=== PATIENT | male | born 1950 | race Caucasian/White ===

== ENCOUNTER → 2023-09-06 08:11 | Outpatient (CLI) | payer OTHER, SELFPAY ==
--- NOTE | 2023-09-06 08:33 | DI.RAD.S_ITS ---
PROCEDURE: XR LUMBAR SPINE 2-3V INDICATIONS: DEGENERATIVE ARTHRITIS TECHNIQUE: 3 views of the lumbar spine were acquired. COMPARISON: None. FINDINGS: Bones: 5 [id number] vertebrae are present. There is 5 mm retrolisthesis of L1 on L2, 4 mm retrolisthesis of L2 on L3, 6 mm retrolisthesis of L3 on L4, 6 mm anterolisthesis of L4 on L5 and 8 mm anterolisthesis of L5 on S1. Degenerative endplate changes and bilateral facet arthrosis throughout lumbar spine is seen more notably at L3-4 through L5-S1 levels. No vertebral body compression fractures. No suspicious bony lesions. Soft tissues: Overlying bowel gas pattern is normal. No suspicious soft tissue calcifications. IMPRESSION: Degenerative disc disease throughout lumbar spine with grade 1 spondylolisthesis throughout lumbar spine as described above. No acute compression fracture. Dictated by: Keny Bright M.D. on 09/06/2023 at 9:55 Approved by: Keny Bright M.D. on 09/06/2023 at 10:01
--- NOTE | 2023-09-06 08:33 | DI.RAD.S_ITS ---
PROCEDURE: XR CERVICAL SPINE 2V OR 3V INDICATIONS: DEGENERATIVE ARTHRITIS TECHNIQUE: 3 view(s) of the cervical spine were acquired. COMPARISON: None. FINDINGS: Bones: No fractures or dislocations to the T1 level. Degenerative endplate changes, loss of disc height and bilateral facet hypertrophic changes are noted throughout cervical spine more notably at C5-6 and C6-7 levels. The lateral masses of C1 appear intact on the odontoid view. No suspicious bony lesions. Soft tissues: No prevertebral soft tissue swelling. IMPRESSION: Degenerative disc disease throughout cervical spine as above. No acute fracture or dislocation. Dictated by: Keny Bright M.D. on 09/06/2023 at 9:55 Approved by: Keny Bright M.D. on 09/06/2023 at 9:55
== END ==
PROVIDERS: Referring Provider Chiropractor; Visit Provider Chiropractor
DX: M47.812 Spondylosis without myelopathy or radiculopathy, cervical region (principal); M50.322 Other cervical disc degeneration at C5-C6 level; M47.817 Spondylosis without myelopathy or radiculopathy, lumbosacral region; M51.36 Other intervertebral disc degeneration, lumbar region; M51.37 Other intervertebral disc degeneration, lumbosacral region; M43.16 Spondylolisthesis, lumbar region; M43.17 Spondylolisthesis, lumbosacral region
CPT/HCPCS: 72040; 72100